=== PATIENT | male | born 1980 | race Two or more races ===

== ENCOUNTER 2017-06-24 22:21 | Emergency (ER) | payer SELFPAY ==
[2017-06-24 22:28] VITALS: TEMP 98.5; BMI 27.2
[2017-06-24] MEDS ORDERED: ASPIRIN 81 MG CHEWABLE TABLETS PO ONE (22:57)
--- NOTE | 2017-06-24 23:05 | PDOC ---
Attending Attestation - Resident Resident Name: Ezekiel Wu - HPI HPI: 06/24/17 23:04 CP x 2 days radiating to the left arm and back; non pleuritic Now with diaphoresis today. No PMHX and no Past Fam hx; and no drug use, as per patient. - Physicial Exam PE: 06/25/17 01:50 Agree with resident exam - Medical Decision Making 06/25/17 01:50 Cardiac enzyme is normal; TSH is still pending. 06/25/17 06:17 TSH is normal.
[2017-06-24] MEDS ORDERED: ASPIRIN 81 MG CHEWABLE TABLETS ONE (23:11)
--- NOTE | 2017-06-24 23:14 | PDOC ---
History of Present Illness - General Chief Complaint: Pain Stated Complaint: PAIN, ACUTE Time Seen by Provider: 06/24/17 22:48 History Source: Patient Exam Limitations: No Limitations - History of Present Illness Initial Comments: 06/24/17 23:08 Patient is a 37M with no significant medical history here today complaining of left shoulder pain radiating down the arm and to the back. The pain has been going on for the past two days, but got a lot worse today. There has been associated diaphoresis today in the ED. He denies chest pain and shortness of breath. The pain in his shoulder isn't worsened with palpation or inspiration. He denies nausea, vomiting, fevers and chills. He denies a family history of heart problems. He denies recent heavy activity. He denies pain like this ever happening before. Past History - Past Medical History Allergies/Adverse Reactions: Allergies Allergy/AdvReac Type Severity Reaction Status Date / Time No Known Allergies Allergy Verified 06/24/17 22:28 Home Medications: Ambulatory Orders NK [No Known Home Medication] 01/07/15 - Psycho/Social/Smoking Cessation Hx Anxiety: No Suicidal Ideation: No Smoking History: Never smoked Have you smoked in the past 12 months: No Information on smoking cessation initiated: No Hx Alcohol Use: No Drug/Substance Use Hx: No Substance Use Type: None Review of Systems - Review of Systems Comments:: 06/24/17 23:11 GENERAL/CONSTITUTIONAL: No fever or chills. No weakness. HEAD, EYES, EARS, NOSE AND THROAT: No change in vision. No ear pain or discharge. No sore throat. CARDIOVASCULAR: No chest pain or shortness of breath RESPIRATORY: No cough or hemoptysis. GASTROINTESTINAL: No nausea, vomiting, diarrhea or constipation. GENITOURINARY: No dysuria, frequency, or change in urination. MUSCULOSKELETAL: Positive for neck pain. SKIN: No rash NEUROLOGIC: No headache, loss of consciousness, or change in strength/sensation. ALLERGIC/IMMUNOLOGIC: No hives or skin allergy. *Physical Exam - Vital Signs Last Vital Signs Temp Pulse Resp BP Pulse Ox 98.5 F 57 L 18 143/80 100 06/24/17 22:25 06/24/17 22:25 06/24/17 22:25 06/24/17 22:25 06/24/17 22:25 - Physical Exam Comments: 06/24/17 23:12 GENERAL: Awake, alert, and fully oriented, diaphoretic HEAD: No signs of trauma, normocephalic, atraumatic EYES: PERRLA, EOMI, sclera anicteric, conjunctiva clear ENT: Auricles normal inspection, hearing grossly normal, nares patent, oropharynx clear without exudates. Moist mucosa NECK: Normal ROM, supple, no lymphadenopathy, JVD, or masses, no midline tenderness LUNGS: No distress, speaks full sentences, clear to auscultation bilaterally HEART: Regular rate and rhythm, normal S1 and S2, no murmurs, rubs or gallops, peripheral pulses normal and equal bilaterally. ABDOMEN: Soft, nontender, normoactive bowel sounds. No guarding, no rebound. No masses EXTREMITIES: Normal inspection, Normal range of motion, no edema. No clubbing or cyanosis. NEUROLOGICAL: Cranial nerves II through XII grossly intact. Normal speech, no focal sensorimotor deficits SKIN: Warm, Dry, normal turgor, no rashes or lesions noted. Heart Score/ECG Review - History History: Moderately suspicious - Electrocardiogram EKG: Normal - Age Age: </= 45 - Risk Factors Based on the list above the patient has:: No risk factors known - Troponin Troponin: </= normal limit - Score Heart Score - Total: 1 ED Treatment Course - LABORATORY CBC & Chemistry Diagram: 06/24/17 23:24 06/24/17 23:50 - RADIOLOGY Radiology Studies Ordered: Category Date Time Status CHEST X-RAY PORTABLE* [RAD] Stat Radiology 06/24/17 22:57 Ordered Medical Decision Making - Medical Decision Making 06/24/17 23:14 37M with no significant medical history today complaining of left shoulder pain radiating to arm and neck. Vital signs stable and normal. Patient is diaphoretic but otherwise comfortable. Differential diagnosis includes, but is not limited to: ACS, arrhythmia, msk pain. Patient PERCs out. Will eval with labs, ecg and cxr. 06/24/17 23:49 ECG shows sinus bradycardia, normal axis, no st elevations or t-wave abnormalities. 06/25/17 02:04 Trop neg, labs normal, tsh pending. HEART score 1. Discharge pending TSH. 06/25/17 06:30 TSH normal. Discharged. *DC/Admit/Observation/Transfer Diagnosis at time of Disposition: Shoulder pain, left - Discharge Dispostion Disposition: HOME Condition at time of disposition: Good Admit: No - Referrals Referrals: Maria E Terry MD [Primary Care Provider] - - Patient Instructions Printed Discharge Instructions: DI for Shoulder Pain
[2017-06-24 23:33] LABS: EOSINOPHIL 2.8 % (0-4.5); MCH 31.1 pg (25.7-33.7); MCHC 33.9 g/dl (32.0-35.9); MEAN CELL VOLUME 91.5 fl (80-96); MEAN PLT VOLUME 7.6 fl (7.5-11.1); NEUTROPHILS 36.2 % (42.8-82.8); PLATELET COUNT 224 K/MM3 (134-434); RDW 12.8 % (11.9-15.9); WHITE BLOOD COUNT 6.3 K/mm3 (4.0-10.0)
[2017-06-24 23:48] LABS: INR 1.16 (0.82-1.09); PROTHROMBIN TIME (PATIENT) 12.8 SEC (9.98-11.88)
[2017-06-25 00:26] LABS: ALBUMIN 3.9 g/dl (3.4-5.0); ANION GAP 10 (8-16); CALCIUM 8.4 mg/dL (8.5-10.1); CO2 26 mmol/L (21-32); CREATININE 1.1 mg/dL (0.7-1.3); GLUCOSE,RANDOM 106 mg/dL (74-106); SGOT/AST 15 U/L (15-37); SGPT/ALT 24 U/L (12-78)
[2017-06-25 00:28] LABS: ALK PHOS 72 U/L (45-117); BILIRUBIN,TOTAL 1.3 mg/dL (0.2-1.0); TOT PROT 6.8 g/dl (6.4-8.2)
[2017-06-25 01:26] LABS: CPK 189 IU/L (39-308)
[2017-06-25 01:27] LABS: TROPONIN I < 0.02 ng/ml (0.00-0.05)
[2017-06-25] MEDS ORDERED: KETOROLAC TROMETHAMINE 30 MG/1 ML VIAL IVPUSH ONE (02:03)
[2017-06-25] MEDS ORDERED: KETOROLAC TROMETHAMINE 30 MG/1 ML VIAL ONE (02:35)
[2017-06-25 03:56] VITALS: BP 118/70; PULSE 59
--- NOTE | 2017-06-25 09:21 | EKG ---
Test Reason : Blood Pressure : / mmHG Vent. Rate : 050 BPM Atrial Rate : 050 BPM P-R Int : 180 ms QRS Dur : 090 ms QT Int : 380 ms P-R-T Axes : 053 036 037 degrees QTc Int : 346 ms SINUS BRADYCARDIA WITH SINUS ARRHYTHMIA OTHERWISE NORMAL ECG NO PREVIOUS ECGS AVAILABLE Confirmed by MD SUNDEEP, LENO ([id number]) on 06/25/2017 9:21:36 AM Referred By: Confirmed By:LENO URBANO MD
== END 2017-06-25 03:56 | disposition home or self-care (01) ==
LOC: SUPCPDRO 22:21 → JER 22:21
PROC: 3E0333Z Introduction of Anti-inflammatory into Peripheral Vein, Percutaneous Approach (ICD-10-PCS; principal; 2017-06-24)
DX: M25.512 Pain in left shoulder (principal)
CPT/HCPCS: 36415; 71010-TC; 80053; 82553; 84443; 84484; 85025; 85610; 93005; 93010; 99283-25